=== PATIENT | female | born 1990 | race African-American/Black ===

== ENCOUNTER 2021-09-15 10:17 | Emergency (ER) | payer SELFPAY | END 2021-09-15 11:23 | disposition left against medical advice (07) | LOC: CSHERS 10:17 | DX: Z53.21 Procedure and treatment not carried out due to patient leaving prior to being seen by health care provider (principal) ==

== ENCOUNTER 2021-09-15 14:23 | Emergency (ER) | END 2021-09-15 16:39 | disposition left against medical advice (07) | LOC: CSHERS 14:23 | DX: Z53.21 Procedure and treatment not carried out due to patient leaving prior to being seen by health care provider (principal); F17.210 Nicotine dependence, cigarettes, uncomplicated ==

== ENCOUNTER 2021-09-17 08:08 | Emergency (ER) | payer SELFPAY | END 2021-09-17 08:27 | LOC: CSHERS 08:08 | DX: Z02.89 Encounter for other administrative examinations (principal); F17.210 Nicotine dependence, cigarettes, uncomplicated | CPT/HCPCS: 36416; 99283 ==